=== PATIENT | female | born 2000 | race Two or more races ===

== ENCOUNTER 2021-08-15 15:11 | Outpatient (REF) | payer BC, SELFPAY ==
[2021-08-15 17:11] LABS: Syphilis Screen Nonreactive (Nonreactive)
[2021-08-16 05:14] LABS: HBS Num1 6.22 mIU/mL (0-7.99); HBc Num1 0.06 S/CO (0.00-0.79); HIV AB/AG Nonreactive (Nonreactive); HIV Num 1 0.06 S/CO (0.00-0.99); Hepatitis B Core Antibody Nonreactive (Nonreactive); Hepatitis B Surface Antigen Negative (Negative); ~HepC Num1 0.13 S/CO (0.00-0.79); ~Hepatitis B Surface Antibody NONREACTIVE (Nonreactive); ~Hepatitis C Antibody Nonreactive (Nonreactive)
== END 2021-08-15 15:12 | disposition home or self-care (01) ==
LOC: HO.LAB 15:11
PROVIDERS: Visit Provider Family Medicine
DX: Z11.3 Encounter for screening for infections with a predominantly sexual mode of transmission (principal); Z11.4 Encounter for screening for human immunodeficiency virus [HIV]; N39.0 Urinary tract infection, site not specified
CPT/HCPCS: 36415; 86704; 86706; 86780; 86803; 87086; 87088; 87186; 87340; 87389